=== PATIENT | female | born 1990 | race American Indian/Alaskan Native ===

== ENCOUNTER 2020-08-26 17:21 | Outpatient (CLI) | payer MEDICAID ==
[2020-08-26 17:53] VITALS: BP 123/86
[2020-08-26] MEDS ORDERED: LACTATED RINGERS 500 ML IV ONE (19:10)
--- NOTE | 2020-08-26 19:50 | Ultrasound Report ---
ULTRASOUND OBSTETRIC LIMITED ULTRASOUND BIOPHYSICAL PROFILE INDICATION / CLINICAL INFORMATION: leaking fluid. Clinical Gestational Age (GA) in weeks, days: 39, 6 TECHNIQUE: Transabdominal. COMPARISON: None available. FINDINGS: BREATHING MOVEMENT = 2 GROSS BODY MOVEMENT = 2 TONE = 2 QUALITATIVE AMNIOTIC FLUID VOLUME = 2 TOTAL BIOPHYSICAL SCORE = 8/8 HEART RATE (beats per minute): 141 AMNIOTIC FLUID INDEX (cm) = 7.2 (normal = 7-24 cm) PRESENTATION: Cephalic. ADDITIONAL FINDINGS: None. IMPRESSION: 1. Biophysical Score = 8/8 2. Low normal amniotic fluid index of 7.2 cm. Signer Name: Chuck Palm MD Signed: 08/26/2020 7:45 PM Workstation Name: [id number]
== END 2020-08-26 21:00 | disposition home or self-care (01) ==
LOC: TRG 17:21 → APU 17:22 → TRG 21:00
PROVIDERS: ATTEND Obstetrics & Gynecology
DX: Z34.93 Encounter for supervision of normal pregnancy, unspecified, third trimester (principal); Z3A.39 39 weeks gestation of pregnancy
CPT/HCPCS: 36415; 59025; 76815; 76819; 84112

== ENCOUNTER 2020-08-30 12:11 | Inpatient (IN) | payer MEDICAID ==
[2020-08-30] MEDS ORDERED: MINERAL OIL 30 ML ORAL LIQD PO PRN (13:25)
[2020-08-30] MEDS ORDERED: METHYLERGONOVINE MALEATE 0.2 MG/ML VIAL IM PRN (13:25)
[2020-08-30] MEDS ORDERED: CARBOPROST TROMETHAMINE 250 MCG/1 ML INJ IM PRN (13:25)
[2020-08-30] MEDS ORDERED: BUTORPHANOL 2 MG/1 ML INJ IV PRN (13:25)
[2020-08-30] MEDS ORDERED: fentaNYL 100 MCG/2 ML INJ IV PRN (13:25)
[2020-08-30] MEDS ORDERED: miSOPROStol 200 MCG TAB PR PRN (13:25)
[2020-08-30] MEDS ORDERED: OXYTOCIN 10 UNIT/1 ML INJ IM PRN (13:25)
[2020-08-30] MEDS ORDERED: ONDANSETRON 4 MG/2 ML INJ IV PRN (13:25)
[2020-08-30] MEDS ORDERED: ePHEDrine SULFATE 50 MG/1 ML INJ IV PRN ×2 (13:25→16:26)
[2020-08-30] MEDS ORDERED: TERBUTALINE 1 MG/1 ML INJ SUB-Q PRN (13:25)
--- NOTE | 2020-08-30 13:31 | History and Physical Report ---
History of Present Illness Date of examination: 08/30/20 Chief complaint: uterine contractions 11/01 History of present illness: EDC Calculations by LMP: 08/26/2020 Past History : 1 Term Births: 0 Premature Births: 0 Living Children: 0 Para: 0 Mult. Births: 0 Prev : 0 Aborta: 0 Elect. Ab: 0 Spont. Ab: 0 Ectopics: 0 Past Medical History: Reviewed history and no changes required: Broken pelvis, hip bone 2003 Past Surgical History: Reviewed history and no changes required: negative Past Medical History Anesthesia Complications: negative Anemia: negative Autoimmune Disorder: negative Bleeding Disorder: negative Blood Transfusions: negative Breast Disease: negative Diabetes: negative Heart Disease: negative Hypertension: negative Hepatitis/Liver Disease: negative Kidney Disease/UTI: negative Neurologic/Epilepsy/Migraines: negative Phlebitis/Varicosities: negative Psychiatric: negative Pulmonary Disease/Asthma: negative Thyroid Disease: negative Hospitalizations: positive, 1 week after broken pelvis Surgery (Non-director card): negative Abnormal PAP: positive, When she was 17 y.o. MCKENNA Exposure: negative Infertility: negative Uterine Anomaly: negative Uterine Surgery (not C/S): negative Other Gynecologic Problems: negative Family Hx: HTN: Father, PGM CA: PGF Infection History Hx of STD: none HIV Risk Eval: no Hepatitis B Risk Eval: low risk Personal hx. of genital herpes: no Partner hx. of genital herpes: no Rash, Viral, or Febrile illness since last LMP? no Varicella/Chicken Pox Status: Previous Disease TB Risk: no Genetic History Congenital Heart Defect: Mom: no Dad: unknown Adele Disease: Mom: no Dad: unknown Thalassemia Mom: no Dad: unknown Neural Tube Defect Mom: no Dad: unknown Down's Syndrome Mom: no Dad: unknown Fan-Sachs Mom: no Dad: unknown Sickle Cell Disease/Trait Mom: no Dad: unknown Hemophilia Mom: no Dad: unknown Muscular Dystrophy Mom: no Dad: unknown Cystic Fibrosis Mom: no Dad: unknown [place] Chorea Mom: no Dad: unknown Mental Retardation Mom: no Dad: unknown Fragile X Mom: no Dad: unknown Other Genetic/Chromosomal Disorder Mom: no Dad: unknown Child w/other defect Mom: no Dad: unknown Enviromental Exposures Xray Exposure: no Medication, drug, or alcohol use since LMP: no Chemical/Other Exposure: no Exposure to Cat Liter: no Hx of Parvovirus (Fifth Disease): no Occupational Exposure to Children: none Active Medications: None Current Allergies: No known allergies Past History Past Medical History: other (see HPI) Past Surgical History: other (see HPI) MAINTENANCE JOURNEYMAN History: chlamydia Family/Genetic History: other (see HPI) Social history: no significant social history - Obstetrical History Expected Date of Delivery: 08/26/20 Actual Gestation: 40 Week(s) 4 Day(s) : 1 Para: 0 Hx # Term Pregnancies: 0 Number of Pregnancies: 0 Spontaneous Abortions: 0 Induced : 0 Number of Living Children: 0 Medications and Allergies Allergies Allergy/AdvReac Type Severity Reaction Status Date / Time No Known Allergies Allergy Verified 06/15/13 03:24 Home Medications Medication Instructions Recorded Confirmed Last Taken Type HYDROcodone/ACETAMINOPHEN [[place] 1 each PO Q6HR PRN #20 tablet 06/15/13 Unknown Rx 5/325 Tablet] Ibuprofen [Motrin] 600 mg PO Q8H PRN #60 tablet 06/15/13 Unknown Rx Review of Systems All systems: negative - Vital Signs Vital signs: Vital Signs Pulse Pulse Ox 83 100 08/30/20 12:48 08/30/20 12:48 Temp Pulse Resp BP Pulse Ox 88 147/89 100 08/30/20 13:24 08/30/20 13:24 08/30/20 13:23 - Physical Exam Breasts: Positive: normal Cardiovascular: Regular rate Lungs: Positive: Normal air movement Abdomen: Positive: normal appearance, soft Genitourinary (Female): Positive: normal external genitalia, normal perenium Vagina: Positive: normal moisture Uterus: Positive: normal size, normal contour Extremities: Positive: normal Deep Tendon Reflex Grade: Normal +2 - Obstetrical FHR: category 2 Uterine Contraction Monitor Mode: External Cervical Dilatation: 2 Cervical Effacement Percentage: 100 station: -3 Uterine Contraction Frequency (min): 4-6 Uterine Contraction Duration: 60 Uterine Contraction Pattern: Regular Uterine Tone Measurement Phase: Contraction Uterine Contraction Intensity: Mild Results All other labs normal. Assessment and Plan 30y/o @ 40+4 presented to triage with contractions. previous SVE was closed, SVE by triage nurse /-3. b/p 140/80 x2 w/o hx htn. plan to admit for labor. admission orders in emr. - Patient Problems (1) 40 weeks gestation of Current Visit: Yes Status: Acute (2) Elevated blood-pressure reading without diagnosis of hypertension Current Visit: Yes Status: Acute Plan to address problem: pre-e labs ordered epidural PRN Close monitoring of blood pressure and for s/s of pre-e (3) Hx of fracture of pelvis Current Visit: Yes Status: Acute Plan to address problem: fx was in 2003 will closely monitor labor process
[2020-08-30] MEDS ORDERED: LIDOCAINE (2%) 20 MG/1 ML VIAL 20 ML MDV INFILTRATI ONE (14:00)
[2020-08-30] MEDS ORDERED: OXYTOCIN DRIP 30 UNITS/500 ML BAG IV SCH ×2 (14:00)
[2020-08-30] MEDS ORDERED: AMPICILLIN/NS 2 GM/100 ML 2 GM/100 ML BAG IV ONE (14:00)
[2020-08-30] MEDS: LACTATED RINGERS 1,000 ML IV SCH ×3 (14:15→17:26)
[2020-08-30 14:28] LABS: Hematocrit 33.6 % (30.3-42.9); Mean Corpuscular HGB Conc 33 % (30-34); Mean Corpuscular Volume 94 fl (79-97); Platelet Count 303 K/mm3 (140-440); Red Blood Count 3.56 M/mm3 (3.65-5.03); Red Cell Distribution Width 15.1 % (13.2-15.2)
[2020-08-30 15:26] LABS: Alanine Aminotransferase 12 units/L (7-56); Uric Acid 4.3 mg/dL (3.5-7.6)
--- NOTE | 2020-08-30 15:49 | Progress Note ---
Assessment and Plan IVF bolus for epidural, patient will get dose of IV sedation while bolus is in progress. pelvis feels adequate, anticipate . - Patient Problems (1) 40 weeks gestation of Current Visit: Yes Status: Acute (2) Elevated blood-pressure reading without diagnosis of hypertension Current Visit: Yes Status: Acute Plan to address problem: pre-e blood work normal at this time. (3) Hx of fracture of pelvis Current Visit: Yes Status: Acute Subjective - Subjective Date of service: 08/30/20 Principal diagnosis: IUP @ 40+4, laboring Interval history: EDC Calculations by LMP: 08/26/2020 Past History : 1 Term Births: 0 Premature Births: 0 Living Children: 0 Para: 0 Mult. Births: 0 Prev : 0 Aborta: 0 Elect. Ab: 0 Spont. Ab: 0 Ectopics: 0 Past Medical History: Reviewed history and no changes required: Broken pelvis, hip bone 2003 Past Surgical History: Reviewed history and no changes required: negative Past Medical History Anesthesia Complications: negative Anemia: negative Autoimmune Disorder: negative Bleeding Disorder: negative Blood Transfusions: negative Breast Disease: negative Diabetes: negative Heart Disease: negative Hypertension: negative Hepatitis/Liver Disease: negative Kidney Disease/UTI: negative Neurologic/Epilepsy/Migraines: negative Phlebitis/Varicosities: negative Psychiatric: negative Pulmonary Disease/Asthma: negative Thyroid Disease: negative Hospitalizations: positive, 1 week after broken pelvis 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 MCKENNA Exposure: negative Infertility: negative Uterine Anomaly: negative Uterine Surgery (not C/S): negative Other Gynecologic Problems: negative Family Hx: HTN: Father, PGM CA: PGF Infection History Hx of STD: none HIV Risk Eval: no Hepatitis B Risk Eval: low risk Personal hx. of genital herpes: no Partner hx. of genital herpes: no Rash, Viral, or Febrile illness since last LMP? no Varicella/Chicken Pox Status: Previous Disease TB Risk: no Genetic History Congenital Heart Defect: Mom: no Dad: unknown Adele Disease: Mom: no Dad: unknown Thalassemia Mom: no Dad: unknown Neural Tube Defect Mom: no Dad: unknown Down's Syndrome Mom: no Dad: unknown Fan-Sachs Mom: no Dad: unknown Sickle Cell Disease/Trait Mom: no Dad: unknown Hemophilia Mom: no Dad: unknown Muscular Dystrophy Mom: no Dad: unknown Cystic Fibrosis Mom: no Dad: unknown [place] Chorea Mom: no Dad: unknown Mental Retardation Mom: no Dad: unknown Fragile X Mom: no Dad: unknown Other Genetic/Chromosomal Disorder Mom: no Dad: unknown Child w/other defect Mom: no Dad: unknown Enviromental Exposures Xray Exposure: no Medication, drug, or alcohol use since LMP: no Chemical/Other Exposure: no Exposure to Cat Liter: no Hx of Parvovirus (Fifth Disease): no Occupational Exposure to Children: none Active Medications: None Current Allergies: No known allergies Patient reports: contractions Objective - Vital Signs Vital Signs: Vital Signs - 12hr 08/30/20 08/30/20 08/30/20 12:48 12:49 12:53 Temperature Pulse Rate 83 82 94 H Respiratory Rate Blood Pressure 142/83 O2 Sat by Pulse 100 97 Oximetry 08/30/20 08/30/20 08/30/20 12:58 13:03 13:08 Temperature Pulse Rate 106 H 101 H 98 H Respiratory Rate Blood Pressure 123/78 O2 Sat by Pulse 98 100 99 Oximetry 08/30/20 08/30/20 08/30/20 13:13 13:18 13:23 Temperature Pulse Rate 98 H 91 H 85 Respiratory Rate Blood Pressure O2 Sat by Pulse 98 99 100 Oximetry 08/30/20 08/30/20 08/30/20 13:24 13:28 13:29 Temperature Pulse Rate 88 101 H 102 H Respiratory Rate Blood Pressure 147/89 O2 Sat by Pulse 99 91 Oximetry 08/30/20 08/30/20 08/30/20 13:33 13:38 13:43 Temperature Pulse Rate 94 H 86 93 H Respiratory Rate Blood Pressure 132/73 O2 Sat by Pulse 76 L 100 100 Oximetry 08/30/20 08/30/20 08/30/20 13:48 13:59 14:02 Temperature Pulse Rate 98 H 93 H 93 H Respiratory Rate Blood Pressure 132/75 O2 Sat by Pulse 99 100 Oximetry 08/30/20 08/30/20 08/30/20 14:04 14:09 14:14 Temperature Pulse Rate 99 H 99 H 91 H Respiratory Rate Blood Pressure O2 Sat by Pulse 99 99 99 Oximetry 08/30/20 08/30/20 08/30/20 14:15 14:19 14:24 Temperature 99.0 F Pulse Rate 88 95 H Respiratory Rate Blood Pressure O2 Sat by Pulse 97 97 Oximetry 08/30/20 08/30/20 08/30/20 14:29 14:34 14:39 Temperature Pulse Rate 94 H 85 110 H Respiratory Rate Blood Pressure O2 Sat by Pulse 97 96 98 Oximetry 08/30/20 08/30/20 08/30/20 14:44 14:49 14:54 Temperature Pulse Rate 84 94 H 90 Respiratory Rate Blood Pressure O2 Sat by Pulse 96 98 99 Oximetry 08/30/20 08/30/20 08/30/20 14:59 15:00 15:01 Temperature 98.7 F Pulse Rate 100 H 93 H Respiratory 20 Rate Blood Pressure 136/87 O2 Sat by Pulse 99 Oximetry - Exam Cardiovascular: Regular rate Lungs: Normal air movement Abdomen: Present: normal appearance, soft Vulva: both: normal Uterus: Present: normal, fundal height above umbilicus FHR: category 1 Uterine Contraction Monitor Mode: External Cervical Dilatation: 4 Cervical Effacement Percentage: 100 station: +1 Uterine Contraction Frequency (min): 2-3 Uterine Contraction Duration: 60 Uterine Contraction Pattern: Regular Uterine Tone Measurement Phase: Contraction Uterine Contraction Intensity: Moderate Extremities: normal - Labs Labs: Abnormal Labs 08/30/20 08/30/20 13:45 14:53 WBC 13.7 H RBC 3.56 L Creatinine 0.5 L Laboratory Results - last 24 hr 08/30/20 08/30/20 08/30/20 13:25 13:45 13:45 WBC 13.7 H RBC 3.56 L Hgb 11.0 Hct 33.6 MCV 94 MCH 31 MCHC 33 RDW 15.1 Plt Count 303 Creatinine Estimated GFR Uric Acid AST ALT Lactate Dehydrogenase Syphilis IgG Antibody Nonreactive Blood Type A POSITIVE Antibody Screen Negative 08/30/20 14:53 WBC RBC Hgb Hct MCV MCH MCHC RDW Plt Count Creatinine 0.5 L Estimated GFR > 60 Uric Acid 4.3 AST 27 ALT 12 Lactate Dehydrogenase 159 Syphilis IgG Antibody Blood Type Antibody Screen
[2020-08-30] MEDS ORDERED: NALOXONE 2 MG/2 ML INJ IV PRN (16:26)
--- NOTE | 2020-08-30 16:26 | Anesthesia Consultation ---
Anesthesia Consult and Med Hx Date of service: 08/30/20 - Airway Anesthetic Teeth Evaluation: Good ROM Head & Neck: Adequate Mental/Hyoid Distance: Adequate Mallampati Class: Class II Intubation Access Assessment: Probably Good - Pulmonary Exam CTA: Yes - Cardiac Exam Cardiac Exam: RRR - Pre-Operative Health Status ASA Pre-Surgery Classification: ASA2 Proposed Anesthetic Plan: Epidural - Pulmonary Hx Asthma: No Hx Pneumonia: No - Cardiovascular System Hx Hypertension: No - Central Nervous System Hx Seizures: No Hx Psychiatric Problems: No - Endocrine Hx Renal Disease: No Hx End Stage Renal Disease: No Hx Hypothyroidism: No Hx Hyperthyroidism: No - Hematic Hx Anemia: No Hx Sickle Cell Disease: No - Other Systems Hx Alcohol Use: No
[2020-08-30 16:35] LABS: Bacteria,Urine 1+ /HPF (Negative); Bilirubin,Urine NEG (Negative); Blood,Urine LG (Negative); Color,Urine Yellow (Yellow); Mucus,Urine FEW /HPF; Urobilinogen,Urine < 2.0 mg/dL (<2.0)
--- NOTE | 2020-08-30 16:41 | Progress Note ---
Labor Epidural - Labor Epidural Start Time: 16:32 Stop Time: 16:39 Performed by:: BREEZY BELTRE Procedure: Patient is requesting epidural for labor pain. H&P, and labs reviewed. Procedure explained, questions answered, consent obtained. Patient in sitting position with blood pressure cuff and pulse ox on and working. Timeout performed immediately before start of procedure. Sterile chlorahexadine 0.5% prep/drape. 3 mL 1% lidocaine skin wheal at L[3]-L[4]. 18-gauge Tuohy epidural needle advanced to [id number] with saline at [7] cm. Epidural catheter advanced to [12] cm, negative aspiration for blood and csf, negative test dose 3 ml 1.5% lidocaine with epinephrine. Epidural dexmedetomidine [30] mcg administered. Sterile steri-strips and tegaderm applied, followed by tape reinforcement. Patient tolerated procedure well. Breezy BAE
[2020-08-30] MEDS ORDERED: fentaNYL-BUPIV 2 MCG/ML-0.125% 200 MCG/100 ML BAG EPIDURAL SCH (17:00)
[2020-08-30] MEDS ORDERED: AMPICILLIN/NS 1 GM/50 ML 1 GM/50 ML BAG IV SCH (18:00)
--- NOTE | 2020-08-30 22:50 | Procedure Note ---
OB Delivery Note - Delivery Date of Delivery: 08/30/20 (baby girl ) Phlebotomy Services Technician: MICHELE LI Estimated blood loss: 300cc - Vaginal Delivery presentation: vertex Delivery position: OA (MADELYN) Intrapartum events: meconium Delivery induction: none Delivery augmentation: rupture of membranes, pitocin Delivery monitor: external FHT, internal uterine Route of delivery: Delivery placenta: spontaneous Delivery cord: nuchal cord (x2 loose), 3 umbilical vessels Episiotomy: none Delivery laceration: 2nd degree, vaginal side wall, other (left labial) Delivery repair: vicryl Anesthesia: epidural Delivery comments: female del MADELYN over intact perineum, anterior shoulder delivered without difficulty. loose nuchal x2 reduced. cord clamped and cut x2, infant handed off to NICU and SEPTIC CLEANER. placenta del intact and complete. left labial laceration repaired with 3-0 vicryl SH, 2nd degree vaginal/carrol laceration repaired with 3- [address] in the usual fashion. EBL 300, apgars 8/9, wt 8#5. all counts correct. mother and baby LDR stable. - A at 1 minute: 8 at 5 minutes: 9 Gender: Female (8#5)
[2020-08-31] MEDS ORDERED: ONDANSETRON 4 MG/2 ML INJ IV PRN (00:45)
[2020-08-31] MEDS ORDERED: WITCH HAZEL/ GLYCERIN PAD TP PRN (00:45)
[2020-08-31] MEDS ORDERED: PROMETHAZINE 25 MG TAB PO PRN (00:45)
[2020-08-31] MEDS ORDERED: MAGNESIUM HYDROXIDE (MOM) ORAL LIQD UDC PO PRN (00:45)
[2020-08-31] MEDS ORDERED: LANOLIN/ZINC/DIMETHICONE (LANSINOH) 7 GM TP PRN ×2 (00:45)
[2020-08-31] MEDS ORDERED: BENZOCAINE/MENTHOL 20/0.5% TOP SPRAY 56 GM TP PRN (00:45)
[2020-08-31] MEDS ORDERED: diphenhydrAMINE 25 MG CAP PO PRN (00:45)
[2020-08-31] MEDS: IBUPROFEN 600 MG TAB PO SCH ×4 (04:03→16:44)
[2020-08-31] MEDS: FERROUS SULFATE 325 MG TAB PO SCH ×3 (10:16→21:21)
[2020-08-31] MEDS: DOCUSATE SODIUM 100 MG CAP PO SCH ×2 (10:16→21:21)
[2020-08-31] MEDS: PRENATAL VIT27-FE FUMARATE-FOLIC ACID VIT TAB PO SCH (10:16)
--- NOTE | 2020-08-31 10:24 | Progress Note ---
Assessment and Plan 12hrs s/p with repaired lacerations, pt is breast feeding with good latch. reports pain is well controlled. VSSAF. Lochia scant, fundus firm. - Patient Problems (1) (normal spontaneous vaginal delivery) Current Visit: Yes Status: Acute Plan to address problem: Continue pathway H&H to be drawn this morning Anticipate d/c home tomorrow Subjective - Subjective Date of service: 08/31/20 Principal diagnosis: day #1 s/p Interval history: EDC Calculations by LMP: 08/26/2020 Past History : 1 Term Births: 0 Premature Births: 0 Living Children: 0 Para: 0 Mult. Births: 0 Prev : 0 Aborta: 0 Elect. Ab: 0 Spont. Ab: 0 Ectopics: 0 Past Medical History: Reviewed history and no changes required: Broken pelvis, hip bone 2003 Past Surgical History: Reviewed history and no changes required: negative Past Medical History Anesthesia Complications: negative Anemia: negative Autoimmune Disorder: negative Bleeding Disorder: negative Blood Transfusions: negative Breast Disease: negative Diabetes: negative Heart Disease: negative Hypertension: negative Hepatitis/Liver Disease: negative Kidney Disease/UTI: negative Neurologic/Epilepsy/Migraines: negative Phlebitis/Varicosities: negative Psychiatric: negative Pulmonary Disease/Asthma: negative Thyroid Disease: negative Hospitalizations: positive, 1 week after broken pelvis 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 MCKENNA Exposure: negative Infertility: negative Uterine Anomaly: negative Uterine Surgery (not C/S): negative Other Gynecologic Problems: negative Family Hx: HTN: Father, PGM CA: PGF Infection History Hx of STD: none HIV Risk Eval: no Hepatitis B Risk Eval: low risk Personal hx. of genital herpes: no Partner hx. of genital herpes: no Rash, Viral, or Febrile illness since last LMP? no Varicella/Chicken Pox Status: Previous Disease TB Risk: no Genetic History Congenital Heart Defect: Mom: no Dad: unknown Adele Disease: Mom: no Dad: unknown Thalassemia Mom: no Dad: unknown Neural Tube Defect Mom: no Dad: unknown Down's Syndrome Mom: no Dad: unknown Fan-Sachs Mom: no Dad: unknown Sickle Cell Disease/Trait Mom: no Dad: unknown Hemophilia Mom: no Dad: unknown Muscular Dystrophy Mom: no Dad: unknown Cystic Fibrosis Mom: no Dad: unknown [place] Chorea Mom: no Dad: unknown Mental Retardation Mom: no Dad: unknown Fragile X Mom: no Dad: unknown Other Genetic/Chromosomal Disorder Mom: no Dad: unknown Child w/other defect Mom: no Dad: unknown Enviromental Exposures Xray Exposure: no Medication, drug, or alcohol use since LMP: no Chemical/Other Exposure: no Exposure to Cat Liter: no Hx of Parvovirus (Fifth Disease): no Occupational Exposure to Children: none Active Medications: None Current Allergies: No known allergies Patient reports: appetite normal, voiding normally, pain well controlled, ambulating normally, no dizzy ambulation, no nauseated : doing well, nursing well Objective - Vital Signs Latest vital signs: Vital Signs Temp Pulse Resp BP BP Pulse Ox 08/31/20 09:00 98.1 F 100 H 18 111/67 98 08/31/20 04:31 98.3 F 103 H 20 128/74 97 08/31/20 01:20 98.2 F 88 18 129/72 99 08/30/20 23:44 93 H 100 08/30/20 23:39 98 H 99 08/30/20 23:37 99 H 83 L 08/30/20 23:36 96 H 138/71 08/30/20 23:34 100 H 99 08/30/20 23:30 98.8 F 198 H 18 130/88 99 08/30/20 23:29 198 H 99 08/30/20 23:26 224 H 94 08/30/20 23:24 231 H 100 08/30/20 23:22 100 H 142/75 08/30/20 23:21 98 H 94 08/30/20 23:19 100 H 100 08/30/20 23:15 100 H 16 122/90 98 08/30/20 23:14 72 81 L 08/30/20 23:07 106 H 99 08/30/20 23:02 94 H 100 08/30/20 23:00 113 H 16 156/94 90 08/30/20 22:57 94 H 100 08/30/20 22:52 113 H 156/94 90 08/30/20 22:47 105 H 89 08/30/20 22:46 85 08/30/20 22:45 118 H 18 128/84 99 08/30/20 22:42 104 H 86 08/30/20 22:41 112 H 89 08/30/20 22:37 109 H 99 08/30/20 22:36 120 H 128/84 08/30/20 22:32 96 H 99 08/30/20 22:30 98.7 F 108 H 18 120/75 100 08/30/20 22:27 99 H 100 08/30/20 22:22 108 H 120/75 100 08/30/20 22:17 98 H 100 08/30/20 22:11 128 H 81 L 08/30/20 22:06 92 H 99 08/30/20 22:02 86 100 08/30/20 22:00 67 89 08/30/20 21:57 86 100 08/30/20 21:51 108 H 100 08/30/20 21:47 85 100 08/30/20 21:42 110 H 100 08/30/20 21:37 106 H 111/57 87 08/30/20 21:32 74 94 08/30/20 21:26 89 100 08/30/20 21:22 84 100 08/30/20 21:21 85 128/70 08/30/20 21:16 94 H 100 08/30/20 21:11 90 100 08/30/20 21:07 94 H 124/68 08/30/20 21:06 94 H 100 08/30/20 21:01 91 H 100 08/30/20 20:57 89 100 08/30/20 20:52 85 141/70 08/30/20 20:51 101 H 100 08/30/20 20:47 88 100 08/30/20 20:41 139 H 88 08/30/20 20:37 83 132/71 08/30/20 20:36 80 100 08/30/20 20:31 94 H 100 08/30/20 20:26 94 H 100 08/30/20 20:21 82 107/56 100 08/30/20 20:16 74 100 08/30/20 20:11 90 100 08/30/20 20:07 74 102/53 08/30/20 20:06 81 98 08/30/20 20:04 86 91 08/30/20 20:01 85 99 08/30/20 19:56 85 100 08/30/20 19:51 86 110/61 99 08/30/20 19:46 87 100 08/30/20 19:41 87 99 08/30/20 19:38 86 109/65 08/30/20 19:36 85 99 08/30/20 19:31 91 H 100 08/30/20 19:26 91 H 100 08/30/20 19:22 93 H 110/62 05 19:21 96 H 100 08/30/20 19:16 86 100 08/30/20 19:15 98.8 F 93 H 16 110/62 100 08/30/20 19:11 85 99 08/30/20 19:06 81 109/60 100 08/30/20 19:01 89 99 08/30/20 18:56 80 99 08/30/20 18:53 86 118/63 08/30/20 18:51 89 100 08/30/20 18:46 85 97 08/30/20 18:41 91 H 97 08/30/20 18:38 75 117/57 08/30/20 18:36 80 98 08/30/20 18:31 81 98 08/30/20 18:26 88 99 08/30/20 18:21 88 109/53 97 08/30/20 18:16 77 97 08/30/20 18:11 82 99 08/30/20 18:06 88 108/61 98 08/30/20 18:01 85 97 08/30/20 17:56 86 97 08/30/20 17:51 86 100/58 97 08/30/20 17:46 83 97 08/30/20 17:41 83 96 08/30/20 17:36 83 104/59 96 08/30/20 17:33 79 105/58 08/30/20 17:31 90 97 08/30/20 17:30 90 107/57 08/30/20 17:27 88 103/59 08/30/20 17:26 85 97 08/30/20 17:24 88 104/57 05 17:21 84 111/62 97 08/30/20 17:18 79 108/59 05 17:16 89 97 08/30/20 17:15 83 111/65 05 17:12 82 108/65 05 17:11 85 98 08/30/20 17:09 82 115/58 05 17:06 84 115/55 98 08/30/20 17:04 84 93 08/30/20 17:03 82 109/57 08/30/20 17:01 90 98 08/30/20 17:00 87 108/58 08/30/20 16:57 84 111/59 08/30/20 16:56 85 99 08/30/20 16:54 88 116/63 08/30/20 16:51 84 119/66 99 08/30/20 16:48 92 H 120/74 08/30/20 16:46 89 99 08/30/20 16:45 87 129/79 08/30/20 16:44 92 H 92 08/30/20 16:42 90 163/79 08/30/20 16:41 96 H 99 08/30/20 16:36 101 H 100 08/30/20 16:31 102 H 99 08/30/20 16:27 98 H 74 L 08/30/20 16:26 101 H 100 08/30/20 16:21 87 99 08/30/20 16:16 94 H 133/79 99 08/30/20 16:15 90 131/77 08/30/20 16:11 90 99 08/30/20 16:06 95 H 99 08/30/20 16:01 94 H 97 08/30/20 15:56 93 H 118/65 98 08/30/20 15:01 93 H 136/87 08/30/20 15:00 98.7 F 20 08/30/20 14:59 100 H 99 08/30/20 14:54 90 99 08/30/20 14:49 94 H 98 08/30/20 14:44 84 96 08/30/20 14:39 110 H 98 08/30/20 14:34 85 96 08/30/20 14:29 94 H 97 08/30/20 14:24 95 H 97 08/30/20 14:19 88 97 08/30/20 14:15 99.0 F 08/30/20 14:14 91 H 99 08/30/20 14:09 99 H 99 08/30/20 14:04 99 H 99 08/30/20 14:02 93 H 132/75 08/30/20 13:59 93 H 100 08/30/20 13:48 98 H 99 08/30/20 13:43 93 H 100 08/30/20 13:38 86 132/73 100 08/30/20 13:33 94 H 76 L 08/30/20 13:29 102 H 91 08/30/20 13:28 101 H 99 08/30/20 13:24 88 147/89 08/30/20 13:23 85 100 08/30/20 13:18 91 H 99 08/30/20 13:13 98 H 98 08/30/20 13:08 98 H 123/78 99 08/30/20 13:03 101 H 100 08/30/20 12:58 106 H 98 08/30/20 12:53 94 H 97 08/30/20 12:49 82 142/83 08/30/20 12:48 83 100 Intake and Output 08/30/20 08/31/20 08/31/20 23:59 07:59 15:59 Intake Total 1942.284 300 Output Total 975 300 Balance 967.284 0 Intake: IV 1942.284 Lactated Ringers 1,000 ml 1915.75 @ 125 mls/hr IV DIRECT HETAL Rx#:[id number] PITOCin/NS 30 UNIT/500ML 26.534 30 units In 500 ml @ 4 mls/hr IV TITR HETAL Rx#: [id number] Intake, Free Water 300 Output: Urine 975 300 Indwelling Catheter 975 Void 300 Other: Total, Output Amount 300 300 Estimated Blood Loss 300 - Exam Breasts: Present: normal, Cardiovascular: Present: Regular rate Lungs: Present: Clear to auscultation, Normal air movement Abdomen: Present: normal appearance, soft Vulva: both: laceration/episiotomy Uterus: Present: normal, firm, fundal height below umbilicus Extremities: Present: normal Deep Tendon Reflex Grade: Normal +2 - Labs Labs: Abnormal lab results 08/30/20 08/30/20 Range/Units 13:45 14:53 WBC 13.7 H (4.5-11.0) K/mm3 RBC 3.56 L (3.65-5.03) M/mm3 Creatinine 0.5 L (0.6-1.2) mg/dL
[2020-08-31 12:41] LABS: Hematocrit 29.5 % (30.3-42.9); Hemoglobin 9.5 gm/dl (10.1-14.3)
--- NOTE | 2020-08-31 13:00 | Post Anesthesia Evaluation ---
- Post Anesthesia Evaluation Patient Participated: Yes Airway Patent: Yes Stable Respiratory Function: Yes Nausea/Vomiting: No Temp > 96.8F: Yes Pain Manageable: Yes Adequeate Hydration: Yes Anesthesia Complications: No Block Receding Appropriately: Yes
[2020-09-01] MEDS: IBUPROFEN 600 MG TAB PO SCH ×3 (00:18→14:31)
--- NOTE | 2020-09-01 07:09 | Discharge Summary ---
Providers - Providers Date of Admission: 08/30/20 14:37 Date of discharge: 09/01/20 (pt desires d/c) Attending physician: VIVIAN BARNES Primary care physician: VIVIAN BARNES Hospitalization Reason for admission: active labor Delivery: Episiotomy: none Laceration: 2nd degree Incision: normal Other procedures: none complications: none Discharge diagnosis: IUP at term delivered [place] baby: female Hospital course: uncomplicated vaginal delivery Pt awake sitting on side of bed. No c/o voiced Desires d/c today VSS FF below umb Lochia small Perineum intact. Labia slight swelling intact. H&H 01/21 blood loss r/t delivery Pt is asymptomatic. Doing well s/p vag delivery P: d/c today with instructions RTO 4 weeks PP care RX Motrin for pain Condition at discharge: Good Disposition: DC-01 TO HOME OR SELFCARE - Discharge Diagnoses (1) (normal spontaneous vaginal delivery) Status: Acute Comment: RTO 4 weeks PP Care Plan - Discharge Medications Prescriptions: Ibuprofen [Motrin 800 MG tab] 800 mg PO TID PRN #30 tablet PRN Reason: Pain - Provider Discharge Summary Activity: routine, no sex for 6 weeks, no strenuous exercise Diet: routine Instructions: routine Additional instructions: [] Smoking cessation referral if applicable(refer to patient education folder for contact #) [] Refer to [facility] Booklet Call your doctor immediately for: * Fever > 100.5 * Heavy vaginal bleeding ( >1 pad per hour) * Severe persistent headache * Shortness of breath * Reddened, hot, painful area to leg or breast * Drainage or odor from incision. * Keep incision clean and dry at all times and follow doctor's instructions regarding bathing/showering - Follow up plan Follow up: VIVIAN BARNES MD [Primary Care Provider] - 10/02/20 (Congratulations! please call [phone] to schedule your visit in 4 weeks. Take Motrin as prescribed. Call with any concerns.)
[2020-09-01] MEDS: PRENATAL VIT27-FE FUMARATE-FOLIC ACID VIT TAB PO SCH (09:58)
[2020-09-01] MEDS: FERROUS SULFATE 325 MG TAB PO SCH ×2 (09:58→14:29)
[2020-09-01] MEDS: DOCUSATE SODIUM 100 MG CAP PO SCH (09:58)
[2020-09-01 14:56] VITALS: BP 128/77
== END 2020-09-01 15:31 | disposition home or self-care (01) | DRG 775 ==
LOC: TRG 12:11 → APU 12:15 → TRG 14:35 → LD 14:37 → OB 08-31 00:43
PROVIDERS: ADMIT Obstetrics & Gynecology; ATTEND Obstetrics & Gynecology
PROC: 10E0XZZ Delivery of Products of Conception, External Approach (ICD-10-PCS; principal; 2020-08-30)
PROC: 0KQM0ZZ Repair Perineum Muscle, Open Approach (ICD-10-PCS; 2020-08-30)
PROC: 3E0R3BZ Introduction of Anesthetic Agent into Spinal Canal, Percutaneous Approach (ICD-10-PCS; 2020-08-30)
PROC: 00HU33Z Insertion of Infusion Device into Spinal Canal, Percutaneous Approach (ICD-10-PCS; 2020-08-30)
DX: O99.892 Other specified diseases and conditions complicating childbirth (principal); R03.0 Elevated blood-pressure reading, without diagnosis of hypertension; Z3A.40 40 weeks gestation of pregnancy; Z37.0 Single live birth; Z20.822 Contact with and (suspected) exposure to COVID-19; O77.0 Labor and delivery complicated by meconium in amniotic fluid; O70.1 Second degree perineal laceration during delivery
CPT/HCPCS: 36415; 81001; 82565; 83615; 84450; 84460; 84550; 85014; 85018; 85027; 86592; 86850; 86900; 86901; 88307; G0378; A6250; J2590; J3010; J7120; U0003